=== PATIENT | female | born 1985 | race Caucasian/White ===

== ENCOUNTER → 2021-02-09 | Outpatient (CLI) | payer OTHER ==
[~2021-02-09] MED LIST: TRAM50TA2 PO
[2021-02-09 15:58] LABS: BASOPHILS % (AUTO) 1 % (0-1); EOSINOPHILS % (AUTO) 3 % (1-7); LYMPHOCYTES % (AUTO) 26 % (22-44); MEAN CORPUSCULAR HEMOGLOBIN 27.8 pg (27.0-34.8); MEAN CORPUSCULAR HGB CONC 34.2 g/dL (32.4-35.8); MEAN PLATELET VOLUME 8.7 fL (7.4-10.4); MONOCYTES % (AUTO) 7 % (2-9); NEUTROPHILS % (AUTO) 64 % (42-75); PLATELET COUNT 302 x10^3/uL (130-400); RED BLOOD COUNT 4.58 x10^6/uL (3.82-5.3); RED CELL DISTRIBUTION WIDTH 15.1 % (9.6-15.2)
[2021-02-09 16:06] LABS: ANION GAP 5 mmol/L (5-15); CALCIUM 8.5 mg/dL (8.5-10.1); CHLORIDE 106 mmol/L (98-107); CREATININE 0.82 mg/dL (0.55-1.02); INTERNATIONAL NORMALIZED RATIO 0.96 (0.93-1.1); PROTHROMBIN TIME 10.3 Seconds (9.6-11.5)
== END | disposition home or self-care (01) ==
LOC: STAR 15:10
PROVIDERS: ATTEND Neurological Surgery
DX: Z01.818 Encounter for other preprocedural examination (principal); M51.26 Other intervertebral disc displacement, lumbar region
CPT/HCPCS: 36415; 80048; 85025; 85610; 85730

== ENCOUNTER 2021-02-19 05:38 | Day surgery (SDC) | payer OTHER ==
[~2021-02-19] VITALS: Ht 175.3 cm; Wt 88.8 kg
[2021-02-19] MEDS ORDERED: CHLORHEXIDINE 15 ML UDC ONE (06:08)
[2021-02-19] MEDS ORDERED: LACTATED RINGERS 1,000 ML IV SCH (06:30)
[2021-02-19] MEDS ORDERED: CHLORHEXIDINE 15 ML UDC PO ONE (06:30)
[2021-02-19] MEDS ORDERED: FENTANYL PF 100 MCG/2ML ONE ×3 (06:58→09:04)
[2021-02-19] MEDS ORDERED: MIDAZOLAM 1 MG/ML, 2ML ONE (06:58)
[2021-02-19] MEDS ORDERED: BUPIVACAINE/PF 0.5% ONE (07:02)
[2021-02-19] MEDS ORDERED: GENTAMICIN 80 MG/2 ML ONE (07:02)
[2021-02-19] MEDS ORDERED: EPINEPHRINE 1 MG/ML, 1ML ONE (07:03)
[2021-02-19] MEDS ORDERED: VANCOMYCIN 1,000 MG ONE (07:03)
[2021-02-19] MEDS ORDERED: methylPREDNISolone*ACETATE* 80 MG/ML ONE (07:03)
[2021-02-19] MEDS ORDERED: MEPERIDINE/PF 25MG/0.5ML IVPush PRN (07:30)
[2021-02-19] MEDS ORDERED: ONDANSETRON 2MG/ML, 2ML IVPush PRN (07:30)
[2021-02-19] MEDS ORDERED: HYDROmorphone 1 MG/ML, 1ML INJ IVPush PRN (07:30)
[2021-02-19] MEDS ORDERED: OXYcodone 5 MG/5 ML ORAL.SOL UDC PO PRN (07:30)
[2021-02-19] MEDS ORDERED: PROMETHAZINE 25 MG/ML, 1ML IVPush PRN (07:30)
[2021-02-19] MEDS ORDERED: HYDROcodone/APAP 7.5-325MG/15ML UDC PO PRN (07:30)
[2021-02-19] MEDS ORDERED: KETOROLAC 30 MG/1 ML IVPush PRN (07:30)
[2021-02-19] MEDS ORDERED: METHOCARBAMOL 1,000 MG in DEXTROSE 5% 100 ML IV PRN (07:30)
[2021-02-19] MEDS ORDERED: FENTANYL PF 100 MCG/2ML IV PRN (07:30)
[2021-02-19] MEDS ORDERED: ROCURONIUM 10MG/ML,5ML ONE (07:53)
[2021-02-19] MEDS ORDERED: CEFAZOLIN 1,000 MG ONE (07:53)
[2021-02-19] MEDS ORDERED: ONDANSETRON 2MG/ML, 2ML ONE (07:53)
[2021-02-19] MEDS ORDERED: DEXAMETHASONE 4 MG/ML, 1ML ONE (07:53)
[2021-02-19] MEDS ORDERED: GLYCOPYRROLATE 0.2MG/1ML, 5ML ONE (07:53)
[2021-02-19] MEDS ORDERED: SUCCINYLCHOLINE 20 MG/ML, 10ML ONE (07:53)
[2021-02-19] MEDS ORDERED: NEOSTIGMINE 1 MG/ML, 10ML ONE (07:53)
[2021-02-19] MEDS ORDERED: PROPOFOL 10 MG/ML, 20ML ONE (07:53)
[2021-02-19] MEDS ORDERED: methylPREDNISolone *ACETATE* 40 MG/ML ONE (08:09)
[2021-02-19] MEDS ORDERED: OXYcodone 5 MG/5 ML ORAL.SOL UDC ONE (09:04)
== END 2021-02-19 12:45 | disposition home or self-care (01) ==
LOC: OUT 05:38
PROVIDERS: ATTEND Neurological Surgery
DX: M51.16 Intervertebral disc disorders with radiculopathy, lumbar region (principal); M53.3 Sacrococcygeal disorders, not elsewhere classified; Z20.822 Contact with and (suspected) exposure to COVID-19; Z79.891 Long term (current) use of opiate analgesic; Z79.899 Other long term (current) drug therapy; Z88.2 Allergy status to sulfonamides; Z80.9 Family history of malignant neoplasm, unspecified
CPT/HCPCS: 36415; 63030; 72100; 81025; 86850; 86900; J0171; J0330; J0690; J1030; J1100; J2250; J2405; J2704; J2710; J2800; J3010; J3370; J7120; U0003; U0005; J1040; J1580